=== PATIENT | male | born 2000 | race Caucasian/White ===

== ENCOUNTER 2023-10-17 20:26 | Emergency (ER) | payer SELFPAY ==
--- NOTE | 2023-10-17 21:49 | EDPHYS ---
Physician Documentation [facility] Name: Jeromy Leslie Age: 23 yrs Sex: Male : 2000 Arrival Date: 10/17/2023 Time: 20:26 Bed DX1 Private MD: ED Physician Tete Yadav HPI: 10/16 21:46 This 23 yrs old Male presents to ER via Ambulatory with complaints of Anxiety, sp3 Depression. 21:46 23-year-old male with history of ADHD now presents with anxiety off and on for the last sp3 several weeks. Patient denies any other symptoms including SI, HI or psychosis. Denies headache, chest pain, shortness of breath, abdominal pain, vomiting, diarrhea, rash, fever, or any other signs or symptoms on ROS at this time. Patient is currently without housing. He denies needing any help finding a place for tonight.. Historical: - Allergies: 20:59 No Known Allergies; cm10 - PMHx: 20:59 ADHD; cm10 - Immunization history:: Adult Immunizations up to date. - Infectious Disease History:: Denies. - Social history:: Smoking status: Patient reports the use of cigarette tobacco products, smokes one-half pack cigarettes per day. ROS: 21:47 Constitutional: Negative for fever, chills, and weight loss, Eyes: Negative for injury, sp3 pain, redness, and discharge, Neck: Negative for injury, pain, and swelling, Cardiovascular: Negative for chest pain, palpitations, and edema, Respiratory: Negative for shortness of breath, cough, wheezing, and pleuritic chest pain, Abdomen/GI: Negative for abdominal pain, nausea, vomiting, diarrhea, and constipation, Back: Negative for injury and pain, MS/Extremity: Negative for injury and deformity, Skin: Negative for injury, rash, and discoloration, Neuro: Negative for headache, weakness, numbness, tingling, and seizure, Allergy/Immunology: Negative for hives, rash, and allergies, Endocrine: Negative for neck swelling, polydipsia, polyuria, polyphagia, and marked weight changes, Hematologic/Lymphatic: Negative for swollen nodes, abnormal bleeding, and unusual bruising, Exam: 21:47 Constitutional: This is a well developed, well nourished patient who is awake, alert, sp3 and in no acute distress. Head/Face: Normocephalic, atraumatic. Eyes: Pupils equal round and reactive to light, extra-ocular motions intact. Lids and lashes normal. Conjunctiva and sclera are non-icteric and not injected. Cornea within normal limits. Periorbital areas with no swelling, redness, or edema. Neck: Trachea midline, no thyromegaly or masses palpated, and no cervical lymphadenopathy. Supple, full range of motion without nuchal rigidity, or vertebral point tenderness. No Meningismus. Chest/axilla: Normal chest wall appearance and motion. Nontender with no deformity. No lesions are appreciated. Cardiovascular: Regular rate and rhythm with a normal S1 and S2. No gallops, murmurs, or rubs. Normal PMI, no JVD. No pulse deficits. Respiratory: Lungs have equal breath sounds bilaterally, clear to auscultation and percussion. No rales, rhonchi or wheezes noted. No increased work of breathing, no retractions or nasal flaring. Abdomen/GI: Soft, non-tender, with normal bowel sounds. No distension or tympany. No guarding or rebound. No evidence of tenderness throughout. Back: No spinal tenderness. No costovertebral tenderness. Full range of motion. Skin: Warm, dry with normal turgor. Normal color with no rashes, no lesions, and no evidence of cellulitis. MS/ Extremity: Pulses equal, no cyanosis. Neurovascular intact. Full, normal range of motion. Neuro: Awake and alert, GCS 15, oriented to person, place, time, and situation. Cranial nerves II-XII grossly intact. Motor strength 5/5 in all extremities. Sensory grossly intact. Cerebellar exam normal. Normal gait. 21:47 Psych: Patient does not appear significantly anxious. No SI, HI or psychosis. Patient does not appear to be responding to internal stimuli.. Vital Signs: 20:58 BP 129 / 66; Pulse 91; Resp 16; Temp 97.1; Pulse Ox 98% on R/A; Weight 68.04 kg; Height cm10 5 ft. 9 in. ; Pain 7/10; 20:58 Body Mass Index 22.15 (68.04 kg, 175.26 cm) cm10 20:58 Pain Scale: Adult cm10 MDM: 21:00 Patient medically screened. sp3 21:48 Data reviewed: vital signs, nurses notes. ED course: Patient with no acute emergency at sp3 this time. Will treat with alprazolam 0.5 mg p.o. x 1. I have offered social support services but patient currently declines. Clinically have ruled out any other somatic etiology to the reported symptoms. Patient will be safely discharged home at this time.. Administered Medications: 22:02 Drug: ALPRAZolam PO Tablet 0.5 mg PO once Route: PO; vc1 Disposition Summary: 10/17/23 21:49 Discharge Ordered Notes: Location: Home sp3 Condition: Stable sp3 Diagnosis - Anxiety sp3 Followup: sp3 - With: Private Physician - When: Upon discharge from the Emergency Department - Reason: Continuance of care Discharge Instructions: - Discharge Summary Sheet sp3 - Managing Anxiety, Adult sp3 Forms: - Medication Reconciliation Form sp3 - Antibiotic Education sp3 - Prescription Opioid Use sp3 - Patient Portal Instructions sp3 - Leadership Thank You Letter sp3 Signatures: Tete Yadav MD MD sp3 Marlen Barrera RN RN vc1 Jodi Ingram RN RN cm10
--- NOTE | 2023-10-17 21:49 | ER ---
Nurse's Notes [facility] Name: Jeromy Leslie Age: 23 yrs Sex: Male : 2000 Arrival Date: 10/17/2023 Time: 20:26 Bed DX1 Private MD: Diagnosis: Anxiety Presentation: 10/16 20:58 Chief complaint: Patient states: Anxiety and depression that has been worsening over cm10 the last few months. NO SI OR HI. PT ALSO COMPLAINING OF PAIN TO BILATERAL FEET. Coronavirus screen: Client denies travel out of the [place] in the last 14 days. At this time, the client does not indicate any symptoms associated with coronavirus-19. Ebola Screen: Patient denies travel to an Ebola-affected area in the 21 days before illness onset. No symptoms or risks identified at this time. Initial Sepsis Screen: Does the patient meet any 2 criteria? No. Patient's initial sepsis screen is negative. Does the patient have a suspected source of infection? No. Patient's initial sepsis screen is negative. Risk Assessment: Do you want to hurt yourself or someone else? Patient reports no desire to harm self or others. Onset of symptoms was October 17, 2023. 20:58 Method Of Arrival: Ambulatory cm10 20:58 Acuity: GLADYS 2 cm10 Triage Assessment: 20:59 General: Appears in no apparent distress. comfortable, Behavior is calm, cooperative. cm10 Neuro: No deficits noted. Level of Consciousness is awake, alert, obeys commands, Oriented to person, place, time, situation, Appropriate for age. Respiratory: No deficits noted. Airway is patent Respiratory effort is even, unlabored, Respiratory pattern is regular, symmetrical. Historical: - Allergies: 20:59 No Known Allergies; cm10 - PMHx: 20:59 ADHD; cm10 - Immunization history:: Adult Immunizations up to date. - Infectious Disease History:: Denies. - Social history:: Smoking status: Patient reports the use of cigarette tobacco products, smokes one-half pack cigarettes per day. Screenin:58 Abuse screen: Denies threats or abuse. Nutritional screening: No deficits noted. vc1 Tuberculosis screening: No symptoms or risk factors identified. 20:58 [facility] ED Fall Risk Assessment (Adult) History of falling in the last 3 months, vc1 including since admission No falls in past 3 months (0 pts) Confusion or Disorientation No (0 pts) Intoxicated or Sedated No (0 pts) Impaired Gait No (0 pts) Mobility Assist Device Used No (0 pt) Altered Elimination No (0 pt) Score/Fall Risk Level 0 - 2 = Low Risk Oriented to surroundings, Maintained a safe environment, Educated pt \\T\\ family on fall prevention, incl call for assistance when getting out of bed. Assessment: 21:00 General: Appears in no apparent distress. uncomfortable, slender, unkempt, Behavior is vc1 cooperative, anxious. Pain: Denies pain. Neuro: Level of Consciousness is awake, alert, obeys commands, Oriented to person, place, time, situation, Appropriate for age. Cardiovascular: No deficits noted. Respiratory: Airway is patent Respiratory effort is even, unlabored, Respiratory pattern is regular, symmetrical, Breath sounds are clear bilaterally. GI: No deficits noted. No signs and/or symptoms were reported involving the gastrointestinal system. Abdomen is flat, non-distended. : No deficits noted. No signs and/or symptoms were reported regarding the genitourinary system. EENT: No deficits noted. No signs and/or symptoms were reported regarding the EENT system. Derm: Skin is intact, is healthy with good turgor, Skin is dry, Skin is normal, Skin temperature is warm. Musculoskeletal: No deficits noted. No signs and/or symptoms reported regarding the musculoskeletal system. Circulation, motion, and sensation intact. Range of motion: intact in all extremities. Psych: 21:00 [place] Suicide Severity Screening: In the past month, have you wished you were vc1 or wished you could go to sleep and not wake up? Patient responds "No." "In the past month, have you actually had any thoughts of killing yourself?" Patient responds "no." "In your lifetime, have you ever done anything, started to do anything, or prepared to do anything to end your life?" Patient responds "no.". Subjective: Delusions are denied, Hallucinations are denied. Objective: Patient is cooperative, Speech is soft, Affect is flat. 21:00 Pt denies substance abuse. vc1 22:00 Commitment: Pt not SI/HI no commitment stephen. vc1 Vital Signs: 20:58 BP 129 / 66; Pulse 91; Resp 16; Temp 97.1; Pulse Ox 98% on R/A; Weight 68.04 kg; Height cm10 5 ft. 9 in. ; Pain 7/10; 20:58 Body Mass Index 22.15 (68.04 kg, 175.26 cm) cm10 20:58 Pain Scale: Adult cm10 ED Course: 20:31 Patient arrived in ED. [id number] 20:31 Tete Yadav MD is Attending Physician. sp3 20:59 Triage completed. cm10 21:00 Arm band placed on Patient placed in waiting room. cm10 22:00 Seen in diagnostic chair. vc1 22:00 No provider procedures requiring assistance completed. Patient did not have IV access vc1 during this emergency room visit. Administered Medications: 22:02 Drug: ALPRAZolam PO Tablet 0.5 mg PO once Route: PO; vc1 Medication: 22:00 VIS not applicable for this client. vc1 Outcome: 21:49 Discharge ordered by . sp3 22:00 Discharged to home ambulatory, vc1 22:00 Condition: good 22:00 Discharge instructions given to patient, Instructed on discharge instructions, follow up and referral plans. Demonstrated understanding of instructions, follow-up care, 22:03 Patient left the ED. vc1 Signatures: Tete Yadav MD MD sp3 Lianet Copeland [email or web address] Marlen Barrera RN RN vc1 Jodi Ingram, ALMA RN cm10
[2023-10-17] MEDS ORDERED: ALPRAZOLAM 0.5 MG TABLET ONE (21:56)
[2023-10-18 08:32] VITALS: BP 129/66; TEMP 97.1; O2SAT 98
== END 2023-10-17 22:03 | disposition home or self-care (01) ==
LOC: ER 20:26
DX: F41.9 Anxiety disorder, unspecified (principal); Z59.00 Homelessness unspecified